=== PATIENT | male | born 1935 | race Caucasian/White ===

== ENCOUNTER 2022-01-15 16:35 | Emergency (ER) | payer OTHER ==
--- OUTSIDE RECORDS SUMMARY | 2022-01-15 16:40 | XMS REPORT | Continuity of Care Document ---
:1935 Author Organization [facility] t Address [address] [place] [address] [address] [place] [address] Care Team Providers Name Role Phone Joselyn Pretty MD Primary Care Physician [phone] Usama Lee MD Attending Clinician Doctor Unassigned, [place] Attending Clinician Unavailable Josleyn Pretty MD Attending Clinician JOSELYN PRETTY Attending Clinician Unavailable Lab, Ang - Db Attending Clinician Unavailable USAMA LEE Attending Clinician Unavailable Lis Abarca MD Attending Clinician LIS ABARCA Attending Clinician Unavailable LIS ABARCA Attending Clinician Unavailable Lab, [facility] Fam Pob I Attending Clinician Unavailable SHIRA CALIX Attending Clinician Unavailable Rubén Munoz DO Attending Clinician Emily De La Vega Attending Clinician 2, [facility] Lab Attending Clinician Unavailable Lorraine Addison MD Attending Clinician Tech, [facility] Cardio Vascular Attending Clinician Unavailable Tech, [facility] Sleep Lab Attending Clinician Unavailable Payers Payer Name Policy Type Policy Number Effective Date Expiration Date S ource Problems Condition Condition Condition Status Onset Resolution Last Treating Co mments Source Name Details Category Date Date Treatment Clinician Date Macular Macular Disease Active Univers iris simmons 03-30 it y of [place] [facility] DOMENICO DOMENICO Disease Active Univers (obstructi (obstructi 8-14 it y of ve sleep ve sleep 00:00: [place] apnea) apnea) Medical [place] Increased Increased Disease Active Uni vers prostate prostate 5-06 ity of specific specific 00:00: [place] antigen antigen 00 [facility] (PSA) (PSA) Branch velocity velocity Adjustment Adjustment Disease Active 2017-03 U nivers insomnia insomnia 1-30 ity of 00:: [address] Neuropathy Neuropathy Disease Active 2017-03 U nivers of both of both 1-30 ity of feet feet 00:00: [place] [facility] Microalbum Microalbum Disease Active U nivers inuria inuria 6-16 ity of 00:00: [address] Microscopi Microscopi Disease Active U nivers c c 6-16 ity of hematuria hematuria 00:00: [facility] Anxiety Anxiety Disease Active Univers ity of [facility] Depression Depression Disease Active U nivers ity of [facility] Diabetes Diabetes Disease Active Unive rs mellitus mellitus ity of [facility] Hyperlipid Hyperlipid Disease Active U nivers emia emia ity of [facility] Ventral Ventral Disease Active Univers hernia hernia ity of [facility] Benign Benign Disease Active Univers prostatic prostatic ity of hypertroph hypertroph [place] 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 it y of [facility] Allergies, Adverse Reactions, Alerts Allergy Allergy Status Severity Reaction(s) Onset Inactive Treating Comm ents Source Name Type Date Date Clinician LISINOPR DRUG Active Other-Cmnt Univ ers [place] INGREDI 11-17 ity of 00:00: [place] [facility] Lisinopr Propensi Active Other - See Throat U nivers il ty to comments 11-17 swelling, ity o f adverse 00:00: cough [place] reaction [facility] CIPROCIN DRUG Active Other-Cmnt Univ ers ONIDE INGREDI 6- ity of 00:00: [address] LEVOFLOX DRUG Active Unknown-Cmnt Un fer ACIN INGREDI 6-09 ity of 00:00: [place] 00 Medical Branch Ciprocin Propensi Active Other - See Neck U nivers onide ty to comments 09-04 stiffness ity o f adverse 00:00: [place] reaction 00 Medical s Branch Levoflox Propensi Active Unknown - Stiff Uni vers acin ty to See comments 09-04 neck ity of adverse 00:00: [place] reaction 00 Medical s Branch Social History Social Habit Start Date Stop Date Quantity Comments Source History SDOH University o f Alcohol Frequency [facility] edical Branch History SDOH University o f Alcohol Std [place] Medical Drinks Branch History SDOH University o f Alcohol Binge [place] Medic al Branch Exposure to 2021-10-27 2021-11-06 Not sure [place] [facility]-CoV-2 00:00:00 08:17:00 [facility] (event) [place] Alcohol intake 2021-05-08 2021-05-08 Current drinker Unive rsity of 00:00:00 00:00:00 of alcohol [facility] (finding) [place] Tobacco use and 2016-09-04 2016-09-04 Smokeless tobacco Un iversity of exposure 00:00:00 00:00:00 non-user [facility] Alcohol Comment 2016-09-04 2016-09-04 occasional Universit y of 00:00:00 00:00:00 [facility] Sex [birth year] At [birth year] Universit y of 00:00:00 00:00:00 [facility] Smoking Status Start Date Stop Date Source Never smoked tobacco [facility] Medications Ordered Filled Start Stop Current Ordering Indication Dosage Frequency Signature Comments Components Source Medication Medication Date Date Medication? Clinician (SIG) Name Name DOXYCYCLINE Yes [id number] TAKE 1 Univers HYCLATE 100 9-27 CAPSULE BY it y of mg capsule 00:00: MOUTH EVERY DAY Medical Branch CELECOXIB Yes [id number] TAKE 1 Un fer 200 mg 9-27 CAPSULE BY ity of capsule 00:00: MOUTH EVERY DAY Medical NEEDED Branch GLIMEPIRIDE Yes [id number] TAKE 1 & Univers 2 mg tablet 12-02 1/2 ity of 00:00: TABLETS BY [address] Medical EVERY DAY Branch WITH BREAKFAST metFORMIN Yes [id number] TAKE 1 U nivers 1,000 mg 9-06 TABLET BY ity of tablet 00:00: MOUTH [place] 00 TWICE A Medical DAY Branch GLIMEPIRIDE 2021-0 Yes [id number] TAKE 1 & Univers 2 mg tablet 9-06 1/2 ity of 00:00: TABLETS BY [place] 00 MOUTH Medical EVERY DAY Branch WITH BREAKFAST metFORMIN 2021-0 Yes [id number] TAKE 1 U nivers 1,000 mg 9-06 TABLET BY ity of tablet 00:00: MOUTH [place] 00 TWICE A Medical DAY Branch BUSPIRONE 2021-0 Yes [id number] TAKE 1/2 - Univers 10 mg 2-14 1 TABLET ity of tablet 00:00: BY MOUTH 2 [place] 00 TIMES A Medical DAY. Branch ESCITALOPRA Yes [id number] TAKE 1 Univers M OXALATE 2-14 TABLET BY ity o f 20 mg 00:00: MOUTH [place] tablet 00 EVERY DAY Medical Branch BUSPIRONE 2021- Yes [id number] TAKE 1/2 - Univers 10 mg 2-14 1 TABLET ity of tablet 00:00: BY MOUTH 2 [place] 00 TIMES A Medical DAY. Branch ESCITALOPRA Yes [id number] TAKE 1 Univers M OXALATE 2-14 TABLET BY ity o f 20 mg 00:00: MOUTH [place] tablet 00 EVERY DAY Medical Branch BUSPIRONE Yes [id number] TAKE 1/2 - Univers 10 mg 2-14 1 TABLET ity of tablet 00:00: BY MOUTH 2 [place] 00 TIMES A Medical DAY. Branch ESCITALOPRA 2021- Yes [id number] TAKE 1 Univers M OXALATE 2-14 TABLET BY ity o f 20 mg 00:00: MOUTH [place] tablet 00 EVERY DAY Medical [place] BUSPIRONE 2021-0 Yes [id number] TAKE 1/2 - Univers 10 mg 2-14 1 TABLET ity of tablet 00:00: BY MOUTH 2 [place] 00 TIMES A Medical DAY. Branch ESCITALOPRA Yes [id number] TAKE 1 Univers M OXALATE 2-14 TABLET BY ity o f 20 mg 00:00: MOUTH [place] tablet 00 EVERY DAY Medical [place] BUSPIRONE 2021-0 Yes [id number] TAKE 1/2 - Univers 10 mg 2-14 1 TABLET ity of tablet 00:00: BY MOUTH 2 [place] 00 TIMES A Medical DAY. Branch ESCITALOPRA Yes [id number] TAKE 1 Univers M OXALATE 2-14 TABLET BY ity o f 20 mg 00:00: MOUTH [place] tablet 00 EVERY DAY Medical Branch levothyroxi Yes [id number] 100ug Take 1 Univers ne 100 mcg 2-10 tablet by ity of tablet 00:00: mouth [place] 00 every Medical morning. [facility]othyro[facility] Yes [id number] 100ug Take 1 Univers ne 100 mcg 2-10 tablet by ity of tablet 00:00: mouth [place] 00 every Medical morning. [facility] levothyroxi Yes [id number] 100ug Take 1 Univers ne 100 mcg 2-10 tablet by ity of tablet 00:00: mouth [place] 00 every Medical morning. [facility] levothyroxi Yes [id number] 100ug Take 1 Univers ne 100 mcg 2-10 tablet by ity of tablet 00:00: mouth [place] 00 every Medical morning. Branch REPLACES SNYDER THYROID levothyroxi Yes [id number] 100ug Take 1 Univers ne 100 mcg 2-10 tablet by ity of tablet 00:00: mouth [place] 00 every Medical morning. Branch REPLACES SNYDER THYROID ciclopirox 2021- No [id number] Apply to Univers 8 % 2-10 08-11 affected ity of solution 00:00: 00:00 nails [place] :[place] Remove Medical weekly. Branch ciclopirox 2021- No [id number] Apply to Univers 8 % 2-10 08-11 affected ity of solution 00:00: 00:00 [place] :[place] Remove Medical weekly. Branch blood sugar Yes USE TO [facility] ers diagnostic 9-10 TEST BLOOD ity of (FREESTYLE 00:00: SUGAR [place] PRECISION 00 EVERY DAY Medic al MARIUM STRIPS) BEFORE Branch strip BREAKFAST ICD-10 CODE E11.9 celecoxib Yes [id number] TAKE 1 Un fer 200 mg 9-10 CAPSULE BY ity of capsule 00:00: MOUTH [place] 00 EVERY DAY Medical NEEDED Branch doxycycline Yes [id number] 100mg Take 1 Univers hyclate 100 9-10 capsule by it y of mg capsule 00:00: mouth [place] 00 daily. Medical Branch gabapentin 2020-0 Yes [id number] 300mg Take 1 Univers 300 mg 9-10 capsule by ity of capsule 00:00: mouth 2 (two) Medical times Branch daily. glimepiride 2020-0 Yes [id number] TAKE 1 & Univers 2 mg tablet 9-10 1/2 ity of 00:00: TABLETS BY MOUTH Medical EVERY DAY Branch WITH BREAKFAST losartan 25 2020-0 Yes [id number] 25mg Take 1 Univers mg tablet 9-10 tablet by ity o f 00:00: mouth [place] 00 daily. Medical Branch metFORMIN 2020- Yes [id number] TAKE 1 U nivers 1,000 mg 9-10 TABLET BY ity of tablet 00:00: MOUTH 2 00 TIMES A Medical DAY Branch simvastatin 2020-0 Yes [id number] 20mg Take 1 Univers 20 mg 9-10 tablet by ity of tablet 00:00: mouth 00 daily. Medical Branch blood sugar Yes USE TO [facility] ers diagnostic 9-10 TEST BLOOD ity of (FREESTYLE 00:00: SUGAR [place] PRECISION 00 EVERY DAY Medic al MARIUM STRIPS) BEFORE Branch strip BREAKFAST ICD-10 CODE E11.9 celecoxib 2020-0 Yes [id number] TAKE 1 Un fer 200 mg 9-10 CAPSULE BY ity of capsule 00:00: MOUTH [place] 00 EVERY DAY Medical NEEDED Branch doxycycline 2020-0 Yes [id number] 100mg Take 1 Univers hyclate 100 9-10 capsule by it y of mg capsule 00:00: mouth 00 daily. Medical Branch gabapentin 2020- Yes [id number] 300mg Take 1 Univers 300 mg 9-10 capsule by ity of capsule 00:00: mouth 2 (two) Medical times Branch daily. glimepiride 2020-0 Yes [id number] TAKE 1 & Univers 2 mg tablet 9-10 1/2 ity of 00:00: TABLETS BY MOUTH Medical EVERY DAY Branch WITH BREAKFAST losartan 25 2020-0 Yes [id number] 25mg Take 1 Univers mg tablet 9-10 tablet by ity o f 00:00: mouth [place] 00 daily. Medical Branch metFORMIN 2020-0 Yes [id number] TAKE 1 U nivers 1,000 mg 9-10 TABLET BY ity of tablet 00:00: MOUTH 2 00 TIMES A Medical DAY Branch simvastatin 2020- Yes [id number] 20mg Take 1 Univers 20 mg 9-10 tablet by ity of tablet 00:00: mouth [place] 00 daily. Medical Branch blood sugar Yes USE TO [facility] ers diagnostic 9-10 TEST BLOOD ity of (FREESTYLE 00:00: SUGAR [place] PRECISION 00 EVERY DAY Medic al MARIUM STRIPS) BEFORE Branch strip BREAKFAST ICD-10 CODE E11.9 celecoxib 2020- Yes [id number] TAKE 1 Un fer 200 mg 9-10 CAPSULE BY ity of capsule 00:00: MOUTH [place] 00 EVERY DAY Medical NEEDED Branch doxycycline 2020- Yes [id number] 100mg Take 1 Univers hyclate 100 9-10 capsule by it y of mg capsule 00:00: mouth [place] 00 daily. Medical Branch gabapentin Yes [id number] 300mg Take 1 Univers 300 mg 9-10 capsule by ity of capsule 00:00: mouth 2 [place] 00 (two) Medical times Branch daily. losartan 25 Yes [id number] 25mg Take 1 Univers mg tablet 9-10 tablet by ity o f 00:00: mouth [place] 00 daily. Medical Branch simvastatin Yes [id number] 20mg Take 1 Univers 20 mg 9-10 tablet by ity of tablet 00:00: mouth [place] 00 daily. Medical Branch blood sugar Yes USE TO [facility] diagnostic 9-10 TEST BLOOD ity of (FREESTYLE 00:00: SUGAR [place] PRECISION 00 EVERY DAY Medic al MARIUM STRIPS) BEFORE Branch strip BREAKFAST ICD-10 CODE E11.9 celecoxib 2020- Yes [id number] TAKE 1 Un fer 200 mg 9-10 CAPSULE BY ity of capsule 00:00: MOUTH [place] 00 EVERY DAY Medical NEEDED Branch doxycycline 2020- Yes [id number] 100mg Take 1 Univers hyclate 100 9-10 capsule by it y of mg capsule 00:00: mouth [place] 00 daily. Medical Branch gabapentin 2020- Yes [id number] 300mg Take 1 Univers 300 mg 9-10 capsule by ity of capsule 00:00: mouth 2 [place] 00 (two) Medical times Branch daily. losartan 25 2020- Yes [id number] 25mg Take 1 Univers mg tablet 9-10 tablet by ity o f 00:00: mouth [place] 00 daily. Medical Branch simvastatin Yes [id number] 20mg Take 1 Univers 20 mg 9-10 tablet by ity of tablet 00:00: mouth [place] 00 daily. Medical Branch blood sugar Yes USE TO [facility] ers diagnostic 12-06 TEST BLOOD ity of (FREESTYLE 00:00: SUGAR [place] PRECISION 00 EVERY DAY Medic al MARIUM STRIPS) BEFORE Branch strip BREAKFAST ICD-10 CODE E11.9 gabapentin Yes [id number] 300mg Take 1 Univers 300 mg 9-10 capsule by ity of capsule 00:00: mouth 2 [place] 00 (two) Medical times Branch daily. losartan 25 Yes [id number] 25mg Take 1 Univers mg tablet 9-10 tablet by ity o f 00:00: mouth [place] 00 daily. Medical Branch simvastatin Yes [id number] 20mg Take 1 Univers 20 mg 9-10 tablet by ity of tablet 00:00: mouth [place] 00 daily. Medical Branch celecoxib 2021- No [id number] TAKE 1 U nivers 200 mg 12-06 CAPSULE BY ity of capsule 00:00: 00:00 MOUTH [place] 00 :00 EVERY DAY Medical NEEDED Branch doxycycline 2021- No [id number] 100mg Take 1 Univers hyclate 100 12-06 capsule by i ty of mg capsule 00:00: 00:00 mouth [place] 00 :00 daily. Medical Branch glimepiride 2021- No [id number] TAKE 1 & Univers 2 mg tablet 12-06 1/2 ity of 00:00: 00:00 TABLETS BY [place] 00 :00 MOUTH Medical EVERY DAY Branch WITH BREAKFAST metFORMIN 2021- No [id number] TAKE 1 Univers 1,000 mg 12-06 TABLET BY ity o f tablet 00:00: 00:00 MOUTH 2 [place] 00 :00 TIMES A Medical DAY Branch magnesium Yes 400mg Take 400 Uni vers oxide 400 2-22 mg by ity of mg 15:52: mouth 2 [place] magnesium 23 (two) Medical Tab times Branch daily. magnesium Yes 400mg Take 400 Uni vers oxide 400 2-22 mg by ity of mg 15:52: mouth 2 [place] magnesium 23 (two) Medical Tab times Branch daily. magnesium Yes 400mg Take 400 Uni vers oxide 400 2-22 mg by ity of mg 15:52: mouth 2 [place] magnesium 23 (two) Medical Tab times Branch daily. magnesium 2020-0 Yes 400mg Take 400 Uni vers oxide 400 2-22 mg by ity of mg 15:52: mouth 2 [place] magnesium 23 (two) Medical Tab times Branch daily. magnesium 2020-0 Yes 400mg Take 400 Uni vers oxide 400 2-22 mg by ity of mg 15:52: mouth 2 [place] magnesium 23 (two) Medical Tab times Branch daily. Multivitami 2019-0 Yes Take by Uni vers ns-Minerals 7-01 mouth. ity of -Lutein 08:23: [place] (MULTIVITAM 32 Medical IN 50 PLUS) Branch Tab Multivitami Yes Take by Uni vers ns-Minerals 7-01 mouth. ity of -Lutein 08:23: [place] (MULTIVITAM 32 Medical IN 50 PLUS) Branch Tab Multivitami Yes Take by Uni vers ns-Minerals 7-01 mouth. ity of -Lutein 08:23: [place] (MULTIVITAM 32 Medical IN 50 PLUS) Branch Tab Multivitami Yes Take by Uni vers ns-Minerals 7-01 mouth. ity of -Lutein 08:23: [place] (MULTIVITAM 32 Medical IN 50 PLUS) Branch Tab Multivitami Yes Take by Uni vers ns-Minerals 7-01 mouth. ity of -Lutein 08:23: [place] (MULTIVITAM 32 Medical IN 50 PLUS) Branch Tab lancets 0 Yes Check Univers (FREESTYLE 8-16 glucose ity of LANCETS) 28 00:00: once a day [place] gauge Misc 00 before Medical breakfast, Branch Diagnosis code E11.9 lancets 2017-0 Yes Check Univers (FREESTYLE 8-16 glucose ity of LANCETS) 28 00:00: once a day [place] gauge Misc 00 before Medical breakfast, Branch Diagnosis code E11.9 lancets 2017-0 Yes Check Univers (FREESTYLE 8-16 glucose ity of LANCETS) 28 00:00: once a day [place] gauge Misc 00 before Medical breakfast, Branch Diagnosis code E11.9 lancets 2017-0 Yes Check Univers (FREESTYLE 8-16 glucose ity of LANCETS) 28 00:00: once a day [place] gauge Misc 00 before Medical breakfast, Branch Diagnosis code E11.9 lancets 2017-0 Yes Check Univers (FREESTYLE 8-16 glucose ity of LANCETS) 28 00:00: once a day [facility] [place] [facility] 00 before [facility] Branch Diagnosis code E11.9 aspirin 81 Yes 81mg Take 1 Unive rs mg EC 6-09 tablet by ity of tablet 00:00: mouth [place] [address] [facility] Branch aspirin 81 2016- Yes 81mg Take 1 Unive rs mg EC 6-09 tablet by ity of tablet 00:00: mouth [place] [address] [facility] Branch aspirin 81 2016- Yes 81mg Take 1 Unive rs mg EC 6-09 tablet by ity of tablet 00:00: mouth [place] [address] [facility] Branch aspirin 81 2017- Yes 81mg Take 1 Unive rs mg EC 6-09 tablet by ity of tablet 00:00: mouth [place] [address] [facility] Branch aspirin 81 Yes 81mg Take 1 Unive rs mg EC 6-09 tablet by ity of tablet 00:00: mouth [place] 00 daily. [facility] Immunizations Ordered Filled Immunization Date Status Comments [facility] Immunization Name Name SARS-COV-2 COVID-19 2021-04-05 Completed Unive rsity of PFIZER VACCINE 00:00:00 [facility] [place] [facility] SARS-COV-2 COVID-19 2021-04-05 Completed Unive rsity of PFIZER VACCINE 00:00:00 [facility] [place] [facility] SARS-COV-2 COVID-19 2021-04-05 Completed Unive rsity of PFIZER VACCINE 00:00:00 [facility] [place] [facility] SARS-COV-2 COVID-19 2021-04-05 Completed Unive rsity of PFIZER VACCINE 00:00:00 [facility] [place] [facility] SARS-COV-2 COVID-19 2021-04-05 Completed Unive rsity of PFIZER VACCINE 00:00:00 [facility] [place] [facility] SARS-COV-2 COVID-19 2020-06-10 Completed Unive rsity of PFIZER VACCINE 00:00:00 [facility] [place] [facility] SARS-COV-2 COVID-19 2020-06-10 Completed Unive rsity of PFIZER VACCINE 00:00:00 [facility] [place] [facility] SARS-COV-2 COVID-19 2020-06-10 Completed Unive rsity of PFIZER VACCINE 00:00:00 [facility] [place] [facility] SARS-COV-2 COVID-19 2020-06-10 Completed Unive rsity of PFIZER VACCINE 00:00:00 [facility] [place] [facility] SARS-COV-2 COVID-19 2020-06-10 Completed Unive rsity of PFIZER VACCINE 00:00:00 [facility] [place] [facility] SARS-COV-2 COVID-19 2020-05-20 Completed Unive rsity of PFIZER VACCINE 00:00:00 [facility] [place] [facility] SARS-COV-2 COVID-19 2020-05-20 Completed Unive rsity of PFIZER VACCINE 00:00:00 [facility] [place] [facility] SARS-COV-2 COVID-19 2020-05-20 Completed Unive rsity of PFIZER VACCINE 00:00:00 [facility] [place] [facility] SARS-COV-2 COVID-19 2020-05-20 Completed Unive rsity of PFIZER VACCINE 00:00:00 [facility] [place] [facility] SARS-COV-2 COVID-19 2020-05-20 Completed Unive rsity of PFIZER VACCINE 00:00:00 [facility] [place] [facility] Influenza High Dose 2020-01-08 Completed Unive rsity of [place] 00:00:00 [facility] Influenza High Dose 2020-01-08 Completed Unive rsity of [place] 00:00:00 [facility] Influenza High Dose 2020-01-08 Completed Unive rsity of [place] 00:00:00 [facility] Influenza High Dose 2020-01-08 Completed Unive rsity of [place] 00:00:00 [facility] Influenza High Dose 2020-01-08 Completed Unive rsity of [place] 00:00:00 [facility] Pneumococcal 13 2019-03-30 Completed Universit y of Conjugate, PCV13 00:00:00 [facility] dical (Prevnar 13) Branch Pneumococcal 13 2019-03-30 Completed Universit y of Conjugate, PCV13 00:00:00 [facility] dical (Prevnar 13) Branch Pneumococcal 13 2019-03-30 Completed Universit y of Conjugate, PCV13 00:00:00 [facility] dical (Prevnar 13) Branch Pneumococcal 13 2019-03-30 Completed Universit y of Conjugate, PCV13 00:00:00 [facility] dical (Prevnar 13) Branch Pneumococcal 13 2019-03-30 Completed Universit y of Conjugate, PCV13 00:00:00 [facility] dical (Prevnar 13) Branch Influenza High Dose 2018-12-30 Completed Unive rsity of 00:00:00 [facility] Zoster Vaccine 2018-12-30 Completed University of Recombinant 00:00:00 [facility] Influenza High Dose 2018-12-30 Completed Unive rsity of 00:00:00 [facility] Zoster Vaccine 2018-12-30 Completed University of Recombinant 00:00:00 [facility] Influenza High Dose 2018-12-30 Completed Unive rsity of 00:00:00 [facility] Zoster Vaccine 2018-12-30 Completed University of Recombinant 00:00:00 [facility] Influenza High Dose 2018-12-30 Completed Unive rsity of 00:00:00 [facility] Zoster Vaccine 2018-12-30 Completed University of Recombinant 00:00:00 [facility] Influenza High Dose 2018-12-30 Completed Unive rsity of 00:00:00 [facility] Zoster Vaccine 2018-12-30 Completed University of Recombinant 00:00:00 [facility] Zoster Vaccine 2018-11-02 Completed University of Recombinant 00:00:00 [facility] Zoster Vaccine 2018-11-02 Completed University of Recombinant 00:00:00 [facility] Zoster Vaccine 2018-11-02 Completed University of Recombinant 00:00:00 [facility] Zoster Vaccine 2018-11-02 Completed University of Recombinant 00:00:00 [facility] Zoster Vaccine 2018-11-02 Completed University of Recombinant 00:00:00 [facility] Influenza High Dose 2017-12-30 Completed Unive rsity of 00:00:00 [facility] Pneumococcal 2017-12-30 Completed University o f Polysaccharide, 00:00:00 [place] Med ical PPSV23 (PNEUMOVAX) Branch Influenza High Dose 2017-12-30 Completed Unive rsity of 00:00:00 [facility] Pneumococcal 2017-12-30 Completed University o f Polysaccharide, 00:00:00 [place] Med ical PPSV23 (PNEUMOVAX) Branch Influenza High Dose 2017-12-30 Completed Unive rsity of 00:00:00 [facility] Pneumococcal 2017-12-30 Completed University o f Polysaccharide, 00:00:00 [place] Med ical PPSV23 (PNEUMOVAX) Branch Influenza High Dose 2017-12-30 Completed Unive rsity of 00:00:00 [facility] Pneumococcal 2017-12-30 Completed University o f Polysaccharide, 00:00:00 [place] Med ical PPSV23 (PNEUMOVAX) Branch Influenza High Dose 2017-12-30 Completed Unive rsity of 00:00:00 [facility] Pneumococcal 2017-12-30 Completed University o f Polysaccharide, 00:00:00 [place] Med ical PPSV23 (PNEUMOVAX) Branch TDAP 2015-03-29 Completed University of 00:00:00 [facility] TDAP 2015-03-29 Completed University of 00:00:00 [facility] TDAP 2015-03-29 Completed University of 00:00:00 [facility] 2015-03-29 Completed University of 00:00:00 [facility] 2015-03-29 Completed University of 00:00:00 [facility] Vital Signs Vital Name Observation Time Observation Value Comments Source Systolic blood 2021-11-06 13:31:00 146 mm[Hg] Univer sity [facility] Diastolic blood 2021-11-06 13:31:00 65 mm[Hg] Unive rsity [facility] Heart rate 2021-11-06 13:31:00 71 /min [facility] Body height 2021-11-06 13:31:00 177.8 cm [facility] Body weight 2021-11-06 13:31:00 101.606 kg [facility] BMI 2021-11-06 13:31:00 32.14 kg/m2 [facility] Procedures Procedure Date / Time Performed Performing Clinician [facility] e REFERRAL- 2021-11-19 05:01:00 Doctor Unassigned, No [facility] REQUEST/RESPONSE Name [facility] Encounters Start End Encounter Admission Attending Care Care Encounter Source Date/Time Date/Time Type Type Clinicians Facility Department ID 2021-12-21 2021-12-21 Shane Lee [facility] 1.2.840.114 [id number] Univers 00:00:00 00:00:00 Wondiful A HEALTH 350.1.13.10 ity of [place] 4.2.7.2.686 [place] as GAURAV?BLEA [phone] Dc danielkeagan VANDANA[address] MEDICAL OFFICE BUILDING 2021-11-29 2021-11-29 Shane Lee [facility] 1.2.840.114 [id number] Univers 00:00:00 00:00:00 Wondiful A HEALTH 350.1.13.10 ity of [place] 4.2.7.2.686 Refugio as GAURAV?BLEA [phone] [address] OFFICE [facility] 2021-11-19 2021-11-19 Orders Doctor CALI 1.2.840.114 [id number] Univers 00:00:00 00:00:00 Only Unassigned, MGIUEL 350.1.13.10 ity of [place] [facility] 4.2.7.2.686 Refugio as [phone] [address] 2021-11-06 2021-11-06 [facility] 1.2.840.114 [id number] Univers 08:30:00 08:45:00 Visit [facility] 350.1.13.10 it y of [place] 4.2.7.2.686 Refugio as GAURAV?BLEA [phone] [address] OFFICE [facility] 2021-11-06 2021-11-06 [facility] [id number] Univers 08:30:00 08:30:00 [facility] 2021-11-06 2021-11-06 Outpatient [facility] [id number] Univers 08:30:00 08:30:00 [facility] 2021-11-06 2021-11-06 [facility] [id number] Univers 08:30:00 08:30:00 [facility] 2021-05-19 2021-05-19 Orders Doctor CALI 1.2.840.114 [id number] Univers 00:00:00 00:00:00 Only Unassigned, MIGUEL 350.1.13.10 it[place] of [place] [facility] 4.2.7.2.686 Ref[place] as [phone] [address] 2021-05-11 2021-05-11 [facility] 1.2.840.114 [id number] Univers 00:00:00 00:00:00 Wondiful A HEALTH 350.1.13.10 [facility] 4.2.7.2.686 [place] as PROFESSIO [phone] [address] OFFICE [facility] ONE 2021-05-08 2021-05-08 Processing Analyst Lab, Ang - Db [facility] 1.2.840.1 [id number] Univers 11:30:00 11:45:00 Visit Usama Lee HEALTH 350.1.13.1 0 ity of [place] 4.2.7.2.686 Refugio as GAURAV?BLEA [phone] Dc dejon [place] 353 [facility] OFFICE [facility] 2021-05-08 2021-05-08 Outpatient R ROSA [facility] [id number] Univers 11:30:00 11:30:00 WONDIFUL ity o f [facility] 2021-05-08 2021-05-08 Outpatient R ROSA [facility] [id number] Univers 10:00:00 10:00:00 WONDIFUL ity o f [facility] 2021-05-08 2021-05-08 Office Rosa [facility] 1.2.840.114 [id number] Univers 09:30:00 09:30:00 Visit Neddiful A HEALTH 350.1.13.10 [facility] 4.2.7.2.686 Ref[place] as GAURAV?BLEA [phone] Dc dejon [place] 044 [facility] OFFICE [facility] 2021-05-08 2021-05-08 Outpatient R [facility]A [facility] [id number] [facility] 09:30:00 09:29:11 WONDIFUL ity o f [facility] 2021-05-07 2021-05-07 Office Horacio [facility] 1.2.560.967 [id number] Univers 09:00:00 09:27:00 Visit Lis ATKINS 350.1.13.10 ity of [place].7.2.[place] [phone] Dc dejon SANCHEZ 085 [facility] 2021-05-07 2021-05-07 Outpatient R LIS ABARCA [facility] [id number] Univers 09:00:00 09:27:00 LIS ABARCA itfabian of [facility] 2021-05-07 2021-05-07 Outpatient R ATANASOV, [facility] [id number] Univers 09:00:00 09:27:00 MANGOOVIDIO LEROYLUDMILA ity [facility] 2021-05-07 2021-05-07 Outpatient R MANGOOVIDIO LEROYLUDMILA [facility] [id number] Univers 09:00:00 09:00:00 LIS ABARCA itfabian [facility] 2021-05-07 2021-05-07 Orders Doctor CALI 1.2.840.114 [id number] Univers 00:00:00 00:00:00 Only Unassigned, MIGUEL 350.1.13.10 ity of [place] [facility] 4.2.7.2.686 Refugio as [phone] [address] 2021-05-07 2021-05-07 Telephone Horacio [facility] 1.2.840.114 [id number] Univers 00:00:00 00:00:00 Lis T [place] 350.1.13.10 ity of [place].2.[place] [phone] [facility] 085 [facility] 2021-02-04 2021-02-04 [facility] 1.2.840.114 [id number] Univers 00:00:00 00:00:00 Wondiful A HEALTH 350.1.13.10 ity of [place] 4.2.7.2.686 [place]ugio as PROFESSIO [phone] [facility] 044 [facility] 2021-01-02 2021-01-02 [facility] 1.2.840.114 [id number] Univers 00:00:00 00:00:00 Wondiful A Health 350.1.13.10 ity of [place] 4.2.7.2.686 Refugio as Professio [phone] [address] 2021-01-02 2021-01-02 [facility] 1.2.840.114 [id number] Univers 00:00:00 00:00:00 Wondiful A Health 350.1.13.10 ity of [place] 4.2.7.2.686 Refugio as Professio [phone] [address] One 2020-12-16 2020-12-16 Telephone Cameron, [facility] 1.2.840.114 [id number] Univers 00:00:00 00:00:00 Wondiful A Health 350.1.13.10 ity of [place] 4.2.7.2.686 Refugio as Gaurav?Blea [phone] [facility] claudette [address] [place] [address] 2020-11-29 2020-11-29 Refill [facility] 1.2.840.114 [id number] Univers 00:00:00 00:00:00 Wondiful A Health 350.1.13.10 ity of [place] 4.2.7.2.686 [place]ugio as Professio [phone] [address] One 2020-10-25 2020-10-25 Office Rosa [facility] 1.2.840.114 [id number] Univers 08:20:22 09:03:15 Visit Wondiful A Health 350.1.13.10 ity of [place] 4.2.7.2.686 Refugio as Professio [phone] [address] One 2020-10-25 2020-10-25 Outpatient R [facility]A [facility] [id number] Univers 08:30:00 08:30:00 WONDIFUL ity o f [facility] 2020-10-22 2020-10-22 Outpatient R [facility]A [facility] [id number] Univers 08:40:00 08:53:00 WONDIFUL ity o f [facility] 2020-10-22 2020-10-22 Outpatient R ROSA [facility] [id number] Univers 08:40:00 08:40:00 WONDIFUL ity o f [facility] 2020-10-22 2020-10-22 Processing Analyst Lab, Shivani Fam Pob I [facility] 1.2. 840.114 [id number] Univers 08:01:39 08:21:39 Visit Usama Lee A Health 350.1.13.1 0 ity of [place] 4.2.7.2.686 Refugio as Professio [phone] [address] Office [facility] One 2020-10-08 2020-10-08 Telephone [facility] 1.2.840.114 [id number] Univers 00:00:00 00:00:00 Wondiful A Health 350.1.13.10 ity of [place] 4.2.7.2.686 [place] as Professio [phone] [address] One 2020-07-17 2020-07-17 Telephone [facility] 1.2.840.114 [id number] Univers 00:00:00 00:00:00 Wondiful A Health 350.1.13.10 ity of [place] 4.2.7.2.686 [place] as Professio [phone] [address] One 2020-07-05 2020-07-05 Refill [facility] 1.2.840.114 [id number] Univers 00:00:00 00:00:00 Wondiful A Health 350.1.13.10 ity of [place] 4.2.7.2.686 [place] as Professio [phone] [address] One 2020-06-10 2020-06-10 Outpatient R FIFI [facility] [id number] Univers 08:50:00 08:50:00 SHIRA ity of [facility] 2020-06-04 2020-06-04 Orders Doctor LEIVA 1.2.840.114 [id number] Univers 00:00:00 00:00:00 Only Unassigned, MIGUEL 350.1.13.10 ity of [place] [facility] 4.2.7.2.686 Refugio as [phone] [address] 2020-05-20 2020-05-20 Office [facility] 1.2.840.114 [id number] Univers 15:08:28 16:27:57 Visit Wondiful A Health 350.1.13.10 ity of [place] 4.2.7.2.686 [place] as Professio [phone] [address] Office [facility] One 2020-05-20 2020-05-20 Outpatient R ROSA [facility] [id number] Univers 15:30:00 15:30:00 WONDIFUL ity o f [facility] 2020-05-10 2020-05-10 Reftee [facility] 1.2.840.114 [id number] Univers 00:00:00 00:00:00 Wondiful A Health 350.1.13.10 ity of [place] 4.2.7.2.686 [place] as Professio [phone] [facility] 044 [facility] 2020-05-09 2020-05-09 Reftee [facility] 1.2.840.114 [id number] Univers 00:00:00 00:00:00 Wondiful A Health 350.1.13.10 ity of [place] 4.2.7.2.686 [place] as Professio [phone] [facility] 044 [facility] 2020-05-02 2020-05-02 Shane [facility] 1.2.840.114 [id number] Univers 00:00:00 00:00:00 Wondiful A [place] 350.1.13.10 ity of [place] [phone] [facility] 044 [facility] 2020-05-01 2020-05-01 Office Horacio [facility] 1.2.792.473 [id number] Univers 08:52:26 09:22:26 Visit Lis Garrido [place] 350.1.13.10 ity of [place].2.7.2.[place] [phone] D[facility] 085 [facility] 2020-05-01 2020-05-01 Outpatient R LIS ABARCA [facility] [id number] Univers 09:00:00 09:00:00 LIS ABARCA ity of [facility] 2020-05-01 2020-05-01 Orders Doctor LEIVA 1..840.114 [id number] Univers 00:00:00 00:00:00 Only Unassigned, MIGUEL 350.1.13.10 ity of [place] [facility] 4.2.7.2.686 Refugio as [phone] [address] 2020-04-28 2020-04-28 Reftee Lee NDGERALD 1.2.840.114 [id number] Univers 00:00:00 00:00:00 Wondiful A [place] 350.1.13.10 ity of [place].2.[place] [phone] Dc dicny nal 044 [facility] 2020-04-21 2020-04-21 Patient Alexander [facility] 1.2.840.114 [id number] Univers 00:00:00 00:00:00 Outreach Rubén PRIMARY 350.1.13.10 i ty of [facility] 4.2.7.2.[place]AV[place]ION [phone] [facility] [address] 2020-04-11 2020-04-11 Shane Lee NDGERALD 1.2.840.114 [id number] Univers 00:00:00 00:00:00 Wondiful A Health 350.1.13.10 ity of [place] 4.2.7.2.686 [place] as Professio [phone] [address] Office Building One 2020-04-02 2020-04-02 Shane Lee NDGERALD 1.2.840.114 [id number] Univers 00:00:00 00:00:00 Wondiful A [place] 350.1.13.10 ity of [place].7.2.[place] [phone] [facility] nal [address] [place] [address] 2020-04-01 2020-04-01 Outpatient R ROSA NDGERALD [facility] [id number] Univers 10:00:00 10:00:00 WONDIFUL ity o f [facility] 2020-03-15 2020-03-15 Shane Lee [facility] 1.2.840.114 [id number] Univers 00:00:00 00:00:00 Wondiful A Health 350.1.13.10 ity of [place] 4.2.7.2.686 [place] as Professio [phone] [address] Office Building One 2020-03-14 2020-03-14 Reftee [facility] 1.2.840.114 [id number] Univers 00:00:00 00:00:00 Wondiful A [place] 350.1.13.10 ity of [place].2.[place] [phone] [address] 2020-02-15 2020-02-15 Reftee [facility] 1.2840.114 [id number] Univers 00:00:00 00:00:00 Wondiful A Health 350.1.13.10 ity of [place] 4.2.7.2.686 [place] as Professio [phone] [address] One 2020-01-23 2020-01-23 Outpatient R [facility] [id number] Univers 11:40:00 11:40:00 ity of [facility] 2020-01-23 2020-01-23 Processing Analyst Lab, Adc Fam Pob I [facility] 1.2. 840.114 [id number] Univers 08:07:58 08:27:58 Visit Emily [facility] 350.1.13.10 ity of [place] 4.2.7.2.686 [place] as Professio [phone] [address] One 2020-01-20 2020-01-20 Reftee [facility] 1.2.840.114 [id number] Univers 00:00:00 00:00:00 Wondiful A Health 350.1.13.10 ity of [place] 4.2.7.2.686 [place] as Professio [phone] [address] Office [facility] One 2020-01-11 2020-01-11 Telephone [facility] 1.2.840.114 [id number] Univers 00:00:00 00:00:00 Wondiful A Health 350.1.13.10 ity of [place] 4.2.7.2.686 [place] as Professio [phone] [address] Office [facility] One 2020-01-11 2020-01-11 Orders Doctor CALI 1..840.114 [id number] Univers 00:00:00 00:00:00 Only Unassigned, MIGUEL 350.1.13.10 ity of [place] [facility] 4.2.7.2.686 Refugio as [phone] [address] 2019-09-28 2019-09-28 Processing Analyst 2, Adc Lab [facility] 1.2.840.114 [id number] Univers 08:42:03 08:57:03 Visit Usama Lee A [place] 350.1.13. 10 ity of [place].2.[place] [phone] [facility] 353 [facility] 2019-09-28 2019-09-28 Office [facility] 1.2.840.114 [id number] [facility] 07:46:22 08:35:34 Visit Wondiful A [place] 350.1.13.10 ity of [place] 4[place]2.[place].2.[place] [phone] [facility] 044 [facility] 2019-09-28 2019-09-28 Outpatient R ROSA [facility] [id number] Univers 08:00:00 08:00:00 WONDIFUL ity o f [facility] 2019-09-22 2019-09-22 Reftee [facility] 1.2.840.114 [id number] Univers 00:00:00 00:00:00 Wondiful A Health 350.1.13.10 ity of [place] 4.2.7.2.686 [place] as Professio [phone] [address] One 2019-08-21 2019-08-21 Refill [facility] 1.2.840.114 [id number] Univers 00:00:00 00:00:00 Wondiful A Health 350.1.13.10 ity of [place] 4.2.7.2.686 [place] as Professio [phone] [address] 2019-08-02 2019-08-02 Orders Doctor CALI 1.2.840.114 [id number] Univers 00:00:00 00:00:00 Only Unassigned, MIGUEL 350.1.13.10 ity of [place] [facility] 4.2.7.2.686 Refugio as [phone] [address] 2019-06-04 2019-06-04 Reftee Lee, [facility] 1.2.840.114 [id number] Univers 00:00:00 00:00:00 Wondiful A Health 350.1.13.10 ity of [place] 4.2.7.2.686 [place] as Professio [phone] [address] Office [facility] One 2019-05-31 2019-05-31 Orders Doctor CALI 1.2.840.114 [id number] Univers 00:00:00 00:00:00 Only Unassigned, MIGUEL 350.1.13.10 ity of [place] [facility] 4.2.7.2.686 Refugio as [phone] [address] 2019-05-24 2019-05-24 Reftee Lee, [facility] 1.2.840.114 [id number] Univers 00:00:00 00:00:00 Wondiful A Health 350.1.13.10 ity of [place] 4.2.7.2.686 [place] as Professio [phone] [address] One 2019-05-24 2019-05-24 Ref[facility] 1.2.840.114 [id number] Univers 00:00:00 00:00:00 Wondiful A Health 350.1.13.10 ity of [place] 4.2.7.2.686 [place] as Professio [phone] [address] One 2019-05-23 2019-05-23 Reftee Lee, [facility] 1.2.840.114 [id number] Univers 00:00:00 00:00:00 Wondiful A Health 350.1.13.10 ity of [place] 4.2.7.2.686 [place] as Professio [phone] [address] One 2019-05-20 2019-05-20 Reftee Lee, [facility] 1.2.840.114 [id number] Univers 00:00:00 00:00:00 Wondiful A Health 350.1.13.10 ity of [place] 4.2.7.2.686 [place] as Professio [phone] [address] Office Building One 2019-04-25 2019-04-25 Orders Doctor CALI 1.2.840.114 [id number] Univers 00:00:00 00:00:00 Only Unassigned, MIGUEL 350.1.13.10 ity of [place] [facility] 4.2.7.2.[phone] [facility] [address] 2018-12-09 2018-12-09 [facility] 1.2.840.114 [id number] Univers 10:50:41 23:59:00 Encounter Missy, Shivani [facility] [place] 3 50.1.13.10 ity of [place] 4.2.7.2.686 [place] [facility] [phone] [facility] [address] 2018-12-06 2018-12-06 Orders Doctor CALI 1.2.840.114 [id number] Univers 00:00:00 00:00:00 Only Unassigned, MIGUEL 350.1.13.10 ity of [place] [facility] 4.2.7.2.686 Refugio as [phone] [address] 2018-11-10 2018-11-10 Telephone [facility] 1.2.840.114 [id number] Univers 00:00:00 00:00:00 Wondiful A Health 350.1.13.10 ity of [place] 4.2.7.2.686 [place] as Professio [phone] [address] Office [facility] One 2018-11-09 2018-11-09 Telephone [facility] 1.2.840.114 [id number] Univers 00:00:00 00:00:00 Wondiful A Health 350.1.13.10 ity of [place] 4.2.7.2.686 [place] as Professio [phone] [address] Office [facility] One 2018-10-26 2018-10-26 Processing Analyst Missy, Adc Sleep Lab [facility] 1.2 .840.114 [id number] Univers 09:36:16 09:51:16 Visit Lis Abarca [place] 350.1.13. 10 [facility] [place] 4.2.7.2.[address] [facility] [phone] [facility] [address] Results This patient has no known results.
--- NOTE | 2022-01-15 17:38 | RAD REPORT ---
EXAM DESCRIPTION: CT - Head Brain Wo Cont - 01/15/2022 5:23 pm CLINICAL HISTORY: Head injury status post fall COMPARISON: None TECHNIQUE: Computed axial tomography of the head was obtained. IV contrast was not requested. All CT scans are performed using dose optimization technique as appropriate and may include automated exposure control or mA/KV adjustment according to patient size. FINDINGS: An intracranial bleed is not seen . The ventricles are normal in caliber. No extra-axial fluid collection is noted. No significant hypodensity within the brain noted Fluid within the sinuses/ mastoids is not seen. IMPRESSION: No acute intracranial abnormality is seen. If patient's symptoms persist MRI of the bra in would be recommended.
--- NOTE | 2022-01-15 17:44 | RAD REPORT ---
EXAM DESCRIPTION: CT - Thorax Wo Con - 01/15/2022 5:23 pm CLINICAL HISTORY: Chest pain status post fall COMPARISON: None TECHNIQUE: Computed axial tomography of the chest was obtained. Contrast was not requested. All CT scans are performed using dose optimization technique as appropriate and may include automated exposure control or mA/KV adjustment according to patient size. FINDINGS: The evaluation of mediastinum, carlos alberto and vessels is limited secondary to lack of IV contras t administration. A mediastinal hematoma is not seen. A pulmonary contusion is not noted A small left pleural effusion. No pericardial effusion Nondisplaced fracture fifth left anterior rib. Minimally displaced fracture 6 left lateral ribs. Mild ly displaced fracture seventh left lateral rib. Nondisplaced fracture eighth left lateral rib. No pneumothorax IMPRESSION: Multiple left rib fractures with small left pleural effusion
--- NOTE | 2022-01-15 18:01 | EDPHYS ---
Physician Documentation [facility] Name: Prasanth Menon Age: 86 yrs Sex: Male : 1935 Arrival Date: 01/15/2022 Time: 16:39 Bed 13 Private MD: [place] ED Physician Rajiv Narayan HPI: 01/15 19:01 This 86 yrs old Male presents to ER via Ambulatory with complaints of Fall Injury, kb Shortness Of Breath, Arm Pain. 19:01 Details of fall: The patient fell from an upright position, while walking. Onset: The kb symptoms/episode began/occurred 7 day(s) ago. Associated injuries: The patient sustained injury to the chest, specifically the left lateral anterior chest, pain with breathing, pain with movement, tenderness. Severity of symptoms: At their worst the symptoms were moderate, in the emergency department the symptoms are unchanged. The patient has not experienced similar symptoms in the past. The patient has not recently seen a physician. Pt reports he was walking last Wednesday, got his foot caught on something and fell onto left side. Reports he hit his head and now has a black eye with slight tenderness to holiness. Reports pain to left lateral chest wall, worse with inspiration. Historical: - Allergies: 16:58 Cipro IV; jh5 - PMHx: 16:58 Diabetes - NIDDM; Hyperlipidemia; Thyroid problem; jh5 - Immunization history:: Adult Immunizations up to date. - Social history:: Smoking status: Patient denies any tobacco usage or history of. ROS: 18:43 Constitutional: Negative for fever, chills, and weight loss. kb 18:43 Cardiovascular: Positive for chest pain, with cough, with movement, of the left lateral anterior chest. 18:43 Respiratory: Positive for shortness of breath. 18:43 All other systems are negative. Exam: 18:43 Constitutional: This is a well developed, well nourished patient who is awake, alert, kb and in no acute distress. Eyes: Pupils equal round and reactive to light, extra-ocular motions intact. Lids and lashes normal. Conjunctiva and sclera are non-icteric and not injected. Cornea within normal limits. Periorbital areas with no swelling, redness, or edema. ENT: Moist Mucous membranes Cardiovascular: Regular rate and rhythm with a normal S1 and S2. No gallops, murmurs, or rubs. No pulse deficits. Respiratory: Respirations even and unlabored. No increased work of breathing. Talking in full sentences Abdomen/GI: Soft, non-tender. No distention Skin: Warm, dry with normal turgor. Normal color. MS/ Extremity: Pulses equal, no cyanosis. Neurovascular intact. Full, normal range of motion. Neuro: Awake and alert, GCS 15, oriented to person, place, time, and situation. Moves all extremities. Normal gait. Psych: Awake, alert, with orientation to person, place and time. Behavior, mood, and affect are within normal limits. 18:43 Chest/axilla: Inspection: normal, Palpation: tenderness, that is moderate, of the left lateral anterior chest. Vital Signs: 16:54 BP 152 / 78; Pulse 65; Resp 16; Temp 97.7; Pulse Ox 95% on R/A; Weight 102.06 kg; jh5 Height 5 ft. 10 in. (177.80 cm); Pain 6/10; 17:53 BP 147 / 73; Pulse 57; Resp 16; Pulse Ox 97% on R/A; jd3 16:54 Body Mass Index 32.28 (102.06 kg, 177.80 cm) jh5 MDM: 16:43 Patient medically screened. kb 18:42 Data reviewed: vital signs, nurses notes. Data interpreted: Pulse oximetry: on room air kb is 97 %. Interpretation: normal. Counseling: I had a detailed discussion with the patient and/or guardian regarding: the historical points, exam findings, and any diagnostic results supporting the discharge/admit diagnosis, radiology results, the need for outpatient follow up, a family practitioner, to return to the emergency department if symptoms worsen or persist or if there are any questions or concerns that arise at home. 01/15 16:50 Order name: CT Head Brain wo Cont; Complete Time: 17:41 kb 01/15 16:50 Order name: CT Chest Wo Con; Complete Time: 17:50 kb Administered Medications: 18:32 Drug: Aurora (HYDROcodone-acetaminophen) 10 mg-325 mg 1 tabs Route: PO; ss Disposition Summary: 01/15/22 18:00 Discharge Ordered Location: Home kb Condition: Stable kb Diagnosis - Multiple fractures of ribs, left side kb - Fall on same level from slipping, tripping and stumbling without subsequent kb striking against object Followup: kb - With: Emergency Department - When: As needed - Reason: Worsening of condition Followup: kb - With: Private Physician - When: 2 - 3 days - Reason: Recheck today's complaints, Continuance of care, Re-evaluation by your physician Discharge Instructions: - Discharge Summary Sheet kb - Rib Fracture, Ehtf-is-Ipti kb Forms: - Medication Reconciliation Form kb - Thank You Letter kb - Antibiotic Education kb - Prescription Opioid Use kb Prescriptions: - Diclofenac Sodium 75 mg Oral tablet,delayed release (DR/EC) - take 1 tablet by ORAL route 2 times per day As needed; 30 tablet; Refills: 0, kb Product Selection Permitted Addendum: 01/20/2022 04:01 Co-signature as Attending Physician, Rajiv Narayan MD I agree with the assessment and c kapadia plan of care. Signatures: Dispatcher [employer] Claudia Umanzor, DJ INSTRUCTOR-C DJ INSTRUCTOR-Rajiv Ghotra MD MD cha Smirch, Shelby, RN RN Luna Gordillo, RN RN jh5
--- NOTE | 2022-01-15 18:01 | ER ---
Nurse's Notes [facility] Name: Prasanth Menon Age: 86 yrs Sex: Male : 1935 Arrival Date: 01/15/2022 Time: 16:39 Bed 13 Private MD: Long Alegre Diagnosis: Multiple fractures of ribs, left side;Fall on same level from slipping, tripping and stumbling without subsequent striking against object Presentation: 01/15 16:54 Chief complaint: Patient states: Mechanical fall from standing, LAST Wednesday, no LOC, no jh5 thinners. Having SOB due to left sided rib pain, left arm pain, and left jaw pain from fall. Coronavirus screen: Vaccine status: Patient reports receiving the 2nd dose of the covid vaccine. Client denies travel out of the [place] in the last 14 days. At this time, the client does not indicate any symptoms associated with coronavirus-19. Ebola Screen: Patient negative for fever greater than or equal to 101.5 degrees Fahrenheit, and additional compatible Ebola Virus Disease symptoms Patient denies exposure to infectious person. Patient denies travel to an Ebola-affected area in the 21 days before illness onset. Initial Sepsis Screen: Does the patient meet any 2 criteria? No. Patient's initial sepsis screen is negative. Does the patient have a suspected source of infection? No. Patient's initial sepsis screen is negative. Risk Assessment: Do you want to hurt yourself or someone else? Patient reports no desire to harm self or others. Onset of symptoms was January 09, 2022. 16:54 Method Of Arrival: Ambulatory [facility] 16:54 Acuity: BRIELLE 3 jh5 Triage Assessment: 16:58 General: Appears in no apparent distress. uncomfortable, well groomed, well developed, jh5 well nourished, Behavior is calm, cooperative, appropriate for age. Pain: Complains of pain in face and left arm. Historical: - Allergies: 16:58 Cipro IV; jh5 - PMHx: 16:58 Diabetes - NIDDM; Hyperlipidemia; Thyroid problem; jh5 - Immunization history:: Adult Immunizations up to date. - Social history:: Smoking status: Patient denies any tobacco usage or history of. Screenin:36 Abuse screen: Denies threats or abuse. Nutritional screening: No deficits noted. jd3 Tuberculosis screening: No symptoms or risk factors identified. Fall Risk Ambulatory Aid- None/Bed Rest/Nurse Assist (0 pts). Gait- Normal/Bed Rest/Wheelchair (0 pts) Mental Status- Oriented to own ability (0 pts). Total Rivas Fall Scale indicates No Risk (0-24 pts). Assessment: 16:56 General: Appears in no apparent distress. comfortable, Behavior is calm, cooperative, jd3 appropriate for age. Pain: Complains of pain in left lateral anterior chest, left lateral posterior chest and left shoulder Pain radiates to left subscapular area Quality of pain is described as aching, shooting, tender, Aggravated by increased activity, repositioning. Neuro: Reyes Agitation-Sedation Scale (RASS): 0 - Alert and Calm Level of Consciousness is awake, alert, obeys commands, Oriented to person, place, time, situation. Cardiovascular: Denies chest pain, Heart tones present Capillary refill < 3 seconds Patient's skin is warm and dry. Respiratory: Airway is patent Respiratory effort is even, unlabored, Respiratory pattern is regular, symmetrical, Breath sounds are clear bilaterally. GI: No signs and/or symptoms were reported involving the gastrointestinal system. : No signs and/or symptoms were reported regarding the genitourinary system. EENT: No signs and/or symptoms were reported regarding the EENT system. Derm: Skin is intact, Skin is dry, Skin is normal, Skin temperature is warm. Musculoskeletal: Circulation, motion, and sensation intact. Range of motion: limited in left shoulder. 17:52 Reassessment: Patient appears in no apparent distress at this time. Patient and/or jd3 family updated on plan of care and expected duration. Pain level reassessed. Patient is alert, oriented x 3, equal unlabored respirations, skin warm/dry/pink. Vital Signs: 16:54 BP 152 / 78; Pulse 65; Resp 16; Temp 97.7; Pulse Ox 95% on R/A; Weight 102.06 kg; [facility] Height 5 ft. 10 in. (177.80 cm); Pain 6/10; 17:53 BP 147 / 73; Pulse 57; Resp 16; Pulse Ox 97% on R/A; [facility] 16:54 Body Mass Index 32.28 (102.06 kg, 177.80 cm) [facility] ED Course: 16:39 Patient arrived in ED. mr 16:39 Long Alegre MD is Private Physician. mr 16:43 Claudia Pack FNP-C is [facility]. kb 16:43 Rajiv Narayan MD is Attending Physician. kb 16:55 Pierre Le, RN is Primary Nurse. [facility] 16:58 Triage completed. [facility] 16:58 Arm band placed on right wrist. [facility] 17:24 CT Head Brain wo Cont In Process Unspecified. EDMS 17:24 CT Chest Wo Con In Process Unspecified. EDMS 17:37 Patient has correct armband on for positive identification. Bed in low position. Call j light in reach. Side rails up X 1. Adult w/ patient. Pulse ox on. NIBP on. Administered Medications: 18:32 Drug: [place] (HYDROcodone-acetaminophen) 10 mg-325 mg 1 tabs Route: PO; Medication: 17:36 VIS not applicable for this client. [facility] Outcome: 18:00 Discharge ordered by MD. kb 18:32 Patient left the ED. Signatures: Dispatcher [employer] EDMI Claudia Pack FNP-C GEAR GRINDER-Ckmonet Janessa CooperGénesis, RN RN ss Pierre Le, RN RN jLuna Gill RN RN jh5
[2022-01-15] MEDS ORDERED: HYDROCODONE/APAP 10/325 TAB ONE (18:25)
[2022-01-15 18:44] VITALS: TEMP 97.7
[2022-01-15 18:46] VITALS: BP 147/73; O2SAT 97
== END 2022-01-15 18:32 | disposition home or self-care (01) ==
LOC: ER 16:35
DX: S22.42XA Multiple fractures of ribs, left side, initial encounter for closed fracture (principal); W01.0XXA Fall on same level from slipping, tripping and stumbling without subsequent striking against object, initial encounter; Z88.1 Allergy status to other antibiotic agents
CPT/HCPCS: 70450; 71250; 99283